=== PATIENT | male | born 1940 | race Caucasian/White ===

== ENCOUNTER → 2017-02-18 | Day surgery (SDC) | payer OTHER ==
[~2017-02-18] VITALS: Ht 177.8 cm; Wt 82.0 kg
[~2017-02-18] MED LIST: ALLO300T2 PO; ASPI-435 PO; ATOR-22 PO; ATOR-24 PO; CALC500C70 PO; CHOL1000 PO; DOXY100C76 PO; FENTANYL CITRATE INJ 50 MCG/1 ML 2 ML VIAL ONE; GLUC10007 PO; HYDR25TA4 PO; INDA1TAB3 PO; LIDOCAINE HCL 2% 2 ML VIAL (20MG/ML) ONE; LIDOCAINE HCL 2% VISC SOLN 20 ML UDC ONE; LISI20TA3 PO; METR1GEL3 TOP; MULT-225 PO; PHENYLEPHRINE 100MCG/ML 5ML SYR ONE; PRED1SUS3 OPL; PROPOFOL IV EMULSION 10 MG/ML 20 ML VIAL IV ONE
[2017-02-18 07:01] VITALS: Ht 177.8 cm; Wt 82.0 kg
[2017-02-18 07:02] VITALS: BP 131/69; PULSE 56; TEMP 36.7; O2SAT 98
--- NOTE | 2017-02-18 07:31 | History & Physical Bridge Note ---
H&P Re-Evaluation Bridge Note: I have examined the patient, reviewed the History & Physical and in the interval since the performance of the History & Physical I have noted the following changes of clinical significance: No changes noted. Informed consent obtained. Proceed with [facility].
--- NOTE | 2017-02-18 08:15 | Anesthesiology Progress Note ---
Anesthesia Post Op Note Date & Time Feb 18, 2017 at 08:15 Vital Signs Vital Signs Past 12 Hours Date Time Temp Pulse Resp B/P (MAP) Pulse Ox O2 Delivery O2 Flow Rate FiO2 02/18/17 08:10 61 18 127/61 (83) 96 Room Air 02/18/17 08:05 65 18 107/70 (82) 99 Room Air 02/18/17 08:03 63 18 125/66 (85) 99 Nasal Cannula 4 02/18/17 08:00 57 18 98/38 (58) 99 Nasal Cannula 4 02/18/17 07:56 59 16 110/37 (61) 99 Nasal Cannula 4 02/18/17 07:54 49 16 114/44 (67) 99 Nasal Cannula 4 02/18/17 07:50 56 16 93/36 (55) 97 Nasal Cannula 4 02/18/17 07:44 58 16 107/33 (57) 97 Nasal Cannula 4 02/18/17 07:40 70 16 98 Room Air 02/18/17 07:35 64 18 141/73 (95) 97 Room Air 02/18/17 07:02 36.7 56 18 131/69 98 Room Air Notes Mental Status: alert / awake / arousable, participated in evaluation Pt Amnestic to Procedure: Yes Nausea / Vomiting: adequately controlled Pain: adequately controlled Airway Patency, RR, SpO2: stable & adequate BP & HR: stable & adequate Hydration State: stable & adequate Anesthetic Complications: no major complications apparent
--- NOTE | 2017-02-18 08:29 | Discharge Instructions ---
Discharge Instructions Procedure Procedure Date: Feb 18, 2017. Reason for Visit: Abnormal Echocardiogram. Discharge Discharge Date: Feb 18, 2017. Discharge Diagnosis: Mild aortic valve sclerosis. Last Recorded Wt (Kilograms): 82 Anesthesia Post Anesthesia Instructions: If you have had General Anesthesia or IV Sedation: * Do not drive today. * Resume driving when surgeon permits. * Do not make important decisions or sign legal documents today. * Call surgeon for: 1. Temperature elevations greater than 101 degrees F. 2. Uncontrollable pain. 3. Excessive bleeding. 4. Persistent nausea and vomiting. 5. Medication intolerance (nausea, vomiting or rash). * For nausea and vomiting use only clear liquids such as: tea, soda, bouillon until nausea subsides, then gradually increase diet as tolerated. * If you have any concerns or questions, call your surgeon's office. If physician is unavailable and it is an emergency, call 911 or go to the nearest emergency room. Instructions Activity Recommendations: limitations as noted below Recommended Home Diet: resume previous diet Allergies: Coded Allergies: No Known Allergies (Unverified , 01/14/16) Provider Instructions ACTIVITY RECOMMENDATIONS: Resume activities as tolerated with no limitations unless specified. _x_ No lifting over _10_ pounds for 24 hours. _x_ Do not engage in vigorous exercise, sexual activity, or sports for 24 hours. _x_ Do not drive or operate any motorized equipment for 24 hours. _x_ You may return to work/school tomorrow. _x_ Nothing to eat or drink until gag reflex returns. x__ No HOT or WARM liquids for 10__ hours. x__ Avoid "scratchy" foods such as potato chips or pretzels for 24 hours following procedure. SPECIAL CARE: If you experience coughing up or vomiting of blood, contact _Dr Lockwood [phone] Follow Up Follow-up with: Refer back to Dr Marquez for ongoing care, no additional cardiology follow up indicated at present. Continue aspirin. Oxana Nixon Recommendations: Call your doctor if: * Temperature above 101 degrees * Pain not relieved by pain medicine ordered * There is increased drainage or redness from any incision * You have any unanswered questions or concerns. Your Doctors Instructions noted above were prepared by provider Warren Lockwood. Patient Signature Section: Patient Instructions Signature Page Dmitriy Oconnell Patient (or Guardian) Signature/Date: I have read and understand the instructions given to me by my caregivers. Caregiver/RN/Doctor Signature/Date: The above-named patient and/or guardian has received patient instructions on this date. + Original Patient Signature Page (only) stays with chart. Please make copy for patient.
--- NOTE | 2017-02-18 08:39 | Cardiology Procedure Brief Nt ---
Preliminary Cardiology Note Procedure Date Feb 18, 2017. Pre-Procedure Diagnosis aortic valve abnormality Post-Procedure Diagnosis mild aortic valve sclerosis Procedure(s) Performed [facility] Hotel Director Alex Lockwood DO Snapper On(s) THERESA Tee Estimated Blood Loss none Medication(s) Fentanyl 100 mcg IV, lidocaine 80 mg IV, Propofil 100 mg IV, phenylephrine 150 mcg IV. Preliminary Findings Mild aortic valve sclerosis with mild focal calcification of the right coronary cusp of the aortic valve. Recommendations Continue aspirin and atorvastatin. Refer back to PCP for ongoing care. Return to cardiology on an as needed basis. Specimens none Anesthesia Administered by anesthesia service. 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
[2017-02-18 08:45] VITALS: BP 139/68; PULSE 66; O2SAT 96
--- NOTE | 2017-02-18 12:05 | TEE ---
*NOTICE TO RECEIVING DEMOCRAT AGENCY This information is strictly Confidential and protected under [place] law. [place] law prohibits you from making any further disclosure of this information unless further disclosure is expressly permitted by the written consent of the person to whom it pertains or is authorized by law. A general authorization for the release of medical or other information is not sufficient for this purpose. Hospital accepts no responsibility if the information is made available to any other person, INCLUDING THE PATIENT. Interpretation Summary * Name: IKE FISHMAN Study Date: 02/18/2017 07:21 AM BP: 131/69 mmHg * Patient Location: [facility] HR: 56 * : 1940 (M/d/yyyy) Gender: Male Height: 70 in * Age: 76 yrs Ethnicity: [place] Weight: 180 lb * Ordering Physician: Warren Lockwood DO, [facility] * Performed By: Charlene Mas RDCS * * Reason For Study: ABNORMAL EKG, POSSIBLE AORTIC VALVE VEGITATION * BSA: 2.0 m2 * -- Conclusions -- * There is a small area of focal calcification on the right coronary cusp of the aortic valve consistent with aortic valve sclerosis, that corresponds with the echodensity noted on the transthoracic study. * The interatrial septum is intact with no evidence for an atrial septal defect. 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 * There is no significant atheromatous disease noted in the proximal ascending aorta. * Recommend ongoing risk factor modification with aspirin and atorvastatin. Procedure Details * The transesophageal portion of this study was personally supervised by the undersigned interpreting physician. * [facility] Probe #1 utilized for procedure. * The study was performed in Cardiac Catheterization Lab. * Time out was conducted by the physician, nurse, and aircraft launch and recovery technician with positive identification of patient and procedure. * Informed consent for Transesophageal Echocardiogram was obtained prior to the procedure. * An intravenous line was placed. A topical anesthetic agent was used for oropharangeal anesthesia. A bite block was inserted. * Sedation performed by the anesthesia department. * The patient's vital signs, including blood pressure, heart rate, pulse oximetry and cardiac rhythm were monitored throughout the procedure . * A multifrequency, multiplane transesopheageal echocardiographic endoscope was inserted and manipulated in the standard fashion to achieve multiplane views. * The transesophageal probe was passed without difficulty. * The usual views were obtained; basal, mid-esophageal, transgastric and aortic views. * The patient tolerated the procedure well without evidence of orophangeal or esophageal trauma. * A 2D transesophageal echocardiogram with spectral and color flow Doppler was performed. * Contrast injection with agitated saline was performed. * Start time for the exam was 7:35am, test ended at 8:01am. * A 2D transesophageal echocardiogram was performed. * A 2D transesophageal echocardiogram with color flow Doppler was performed. * A 2D transesophageal echocardiogram with Doppler and color flow Doppler was performed. Left Ventricle * The left ventricle is normal in size. * There is normal left ventricular wall thickness. * Left ventricular systolic function is normal. * Ejection Fraction = 55-60%. * The left ventricular wall motion is normal. Right Ventricle * The right ventricle is normal in size and function. Atria * The left atrial size is normal. * No thrombus is detected in the left atrial appendage. * No left atrial mass or thrombus visualized. * Right atrial size is normal. * The interatrial septum is intact with no evidence for an atrial septal defect. Mitral Valve * The mitral valve anatomy is normal. * There is no mitral valve prolapse present. * There is no vegetation seen on the mitral valve. * There is no mitral valve stenosis. * There is mild mitral regurgitation. Tricuspid Valve * The tricuspid valve is normal. * There is no tricuspid stenosis. * Significant tricuspid regurgitation is absent. * Doppler findings do not suggest pulmonary hypertension. Aortic Valve * The aortic valve is trileaflet. * There is a small area of focal calcification on the right coronary cusp of the aortic valve consistent with aortic valve sclerosis, that corresponds with the echodensity noted on the transthoracic study. * No hemodynamically significant valvular aortic stenosis. * No aortic regurgitation is present. Pulmonic Valve * The pulmonic valve is not well seen, but is grossly normal. Great Vessels * The aortic root is normal size. * There is mild non mobile atheromatous disease noted in the descending thoracic aorta. There is no significant atheromatous disease noted in the proximal aorta or aortic arch. Pericardium * There is no pericardial effusion. MMode 2D Measurements and Calculations Ao root diam 3.7 cm Ao root area 10.7 cm\S\2 asc Aorta Diam 3.4 cm
== END | disposition home or self-care (01) ==
LOC: C.CATH 06:26
PROVIDERS: ATTEND Specialist
DX: I35.8 Other nonrheumatic aortic valve disorders (principal); I10 Essential (primary) hypertension; E78.5 Hyperlipidemia, unspecified; Z79.82 Long term (current) use of aspirin; Z79.899 Other long term (current) drug therapy